=== PATIENT | female | born 1945 | race Caucasian/White ===

== ENCOUNTER 2017-03-25 10:30 | Inpatient (IN) | payer OTHER ==
--- NOTE | 2017-03-25 10:41 | CPEKG ---
Heart Rate: 240 RR Interval: 250 P-R Interval: 94 QRSD Interval: 112 QT Interval: 240 QTC Interval: 480 P [place]: 0 QRS [place]: -34 T Wave [place]: 155 EKG Severity - ABNORMAL ECG - EKG Impression: SUPRAVENTRICULAR TACHYCARDIA EKG Impression: VENTRICULAR PREMATURE COMPLEX EKG Impression: INCOMPLETE LEFT BUNDLE BRANCH BLOCK EKG Impression: LVH WITH SECONDARY REPOLARIZATION ABNORMALITY EKG Impression: ANT-SEPT INJURY, PROBABLE EARLY ACUTE INFARCT Electronically Signed By: Mei Mederos 25-Mar-2017 15:07:31
[2017-03-25] MEDS ORDERED: NS 500 ML IV ONE (10:44)
[2017-03-25] MEDS ORDERED: AMIODARONE HCL 150 MG/3 ML VIAL IVP ONE (10:44)
[2017-03-25] MEDS ORDERED: AMIODARONE HCL 200 ML IV ONE (10:51)
[2017-03-25 10:55] LABS: PLATELET COUNT 264 10^3/uL (150-400)
[2017-03-25 11:07] LABS: INR 1.04 (0.83-1.16); PROTIME(PATIENT) 13.8 SEC (12.0-15.0)
[2017-03-25 11:18] LABS: CREATINE KINASE 100 IU/L (0-156)
--- NOTE | 2017-03-25 11:18 | EDPHY ---
H & P Time Seen by Provider: 03/25/17 10:38 HPI/ROS: HPI Possible seizure, tachycardia. 71-year-old female by ambulance. Her accompanies her. Her reports that approximately 15 min prior to arrival the patient had what was described as tonic clonic like seizure activity which lasted 10-15 seconds. He reports however that she was lucent unconscious during this episode. EMS noted she was markedly tachycardic on their initial evaluation. There rhythm strip shows a wide complex ventricular tachycardia. Her blood sugar per EMS was 167. The patient currently denies any chest pain, shortness of breath or palpitations. She denies any loss of sensation or weakness in her extremities. No headache. No changes in vision. She has no other complaints. Past medical history is significant for stage IV lung cancer. She reports that she last had a CT scan of her head about 6 weeks ago which did not show any metastasis. She is currently on an outpatient chemotherapeutic regimen. Denies cardiac history. ROS: Constitutional: No fever, no chills. As above. Eyes: No discharge. No changes in vision. ENT: No sore throat. No nasal congestion or rhinorrhea. Respiratory: No cough. No shortness of breath. Cardiac: No chest pain, no palpitations. Gastrointestinal: No abdominal pain, no vomiting, no diarrhea. Genitourinary: No hematuria. No dysuria or increased frequency with urination. Musculoskeletal: No back pain. No neck pain. No myalgias or arthralgias. Skin: No rashes. Neurological: No headache. No focal weakness or altered sensation. Past medical history: Stage IV lung cancer. As above. Social history: Nonsmoker. Here with her . No alcohol. Physical Exam: General Appearance: Alert, no distress. This patient is responding to questions appropriately and in full sentences. This patient appears well- hydrated and well-nourished. Eyes: Pupils equal and round no pallor or injection. No lid edema, erythema or injection. ENT, Mouth: Mucous membranes are moist. The pharyngeal tissues are unremarkable. No edema or swelling. No asymmetry suggestive of abscess. No erythema or exudates. No tongue lacerations or abrasions. Respiratory: There are no retractions, lungs are clear to auscultation with good air movement bilaterally. Cardiovascular: Tachycardia. No murmur appreciated. Gastrointestinal: Abdomen is soft and nontender, no masses, bowel sounds normal. No focal tenderness at McBurney's point. No Miller sign. Neurological: Motor sensory function is grossly intact. Cranial nerves are normal. Cerebellar function intact. Skin: Warm and dry, no rashes. Musculoskeletal: Neck is supple and nontender. No pain on flexion of her neck. Extremities are symmetrical. All joints range without pain or impingement. Psychiatric: No agitation. No depression. Database: EKG: EKG 1. Time 10:30 a.m.; shows a wide complex tachycardia with ventricular rate at 2:40 a.m.. Consider SVT with aberrant C verses accelerated ventricular tachycardia. Interpreted by me. EKG 2. time 10:49 a.m.; EKG shows a narrow complex normal sinus tachycardia with a ventricular rate of 121. The OR, QRS, QT intervals are within normal limits. There are no ST-T wave changes indicative of ischemic or injury pattern. No evidence of right heart strain. Interpreted by me. Imaging: CT brain without contrast: Age-related changes only. Results were discussed with staff radiologist Dr. Cy Walker. CT pulmonary angiogram of the chest: Negative for pulmonary embolism. Left upper lobe mass, vertebral Mets, please see radiologist's report for further details. Procedures: Emergency department course: IV placed per EMS. Initial vital signs reviewed. EKG obtained and reviewed by myself. Initial EKG as above, wide complex tachycardia rate of 240. SVT versus accelerated V-tach. Likely SVT. Patient started on IV normal saline with 500 cc to be given over 0.5 hr. She will be given 150 mg of IV amiodarone initially over 5 min. Patient responded well to IV amiodarone could converting to a sinus rhythm, narrow complex with ventricular rate of 110-120. EKG repeated, no ischemic changes. Patient will be started on an amiodarone drip at 1 milligram/minute. 11:20 a.m., patient re-evaluated. Resting comfortably at this time. Patient has received 500 cc of IV normal saline. I will continue her at a rate of 150 cc/hour. Blood pressure currently 104/74. 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 She states that she is feeling much better. Has no complaints at this time. I discussed admission to our hospitalist service with the patient and her . They endorse. Hospitalist paged. 11:25 a.m., discussed case with hospitalist, patient accepted for admission to the hospitalist service, ICU initially, under the care of Dr. Green. She has remained stable through her remaining emergency department course. Dr. Green is concerned about possible pulmonary embolism as an etiology of the patient's tachycardia. CT angiogram of chest ordered. He will follow up on the results of this study. Differential Diagnosis: The differential diagnosis on this patient includes but is not limited to SVT with aberrant see verses ventricular tachycardia, seizure versus pseudo-seizure , history of stage IV lung cancer. This represents a partial list of diagnoses considered. These considerations are based on history, physical exam, past history, reassessment and diagnostic testing. Smoking Status: Never smoked Constitutional: Initial Vital Signs Heart Rate 174 H 03/25/17 10:30 Respiratory Rate 22 H 03/25/17 10:30 Blood Pressure 74/44 L 03/25/17 10:30 O2 Sat (%) 92 03/25/17 10:30 O2 Delivery Mode Room Air O2 (L/minute) 2 Allergies/Adverse Reactions: Penicillins Allergy (Verified 03/25/17 10:58) tramadol Allergy (Verified 03/25/17 10:58) Home Medications: Medication Instructions Recorded Aspirin [Aspirin 81mg (*)] 81 mg PO HS 03/25/17 Erlotinib HCl [Tarceva] 150 mg PO DAILY06 03/25/17 Herbals/Supplements -Info Only 1 ea PO DAILY 03/25/17 Multivitamins [Multivitamin (*)] 1 each PO BID 03/25/17 Pravastatin Sodium [Pravachol] 10 mg PO HS 03/25/17 Medical Decision Making - Diagnostics Imaging Results: Imaging Impressions Chest X-Ray 03/25/17 10:45 Impression: Consistent with left perihilar lung cancer. No obvious acute abnormality identified. Critical Care Time: I spent a total of 42 minutes of critical care time in obtaining history, performing a physical exam, bedside monitoring of interventions, collecting and interpreting tests and discussion with consultants but not including time spent performing procedures. - Data Points Laboratory Results: Laboratory Results 03/25/17 10:30 03/25/17 10:30 03/25/17 03/25/17 03/25/17 10:36 10:30 10:30 WBC RBC Hgb POC Hgb 17.0 gm/dL H gm/dL (12.6-16.3) Hct POC Hct 50 % H % (38-47) MCV MCH MCHC RDW Plt Count MPV Neut % (Auto) Lymph % (Auto) [place] % (Auto) Eos % (Auto) Baso % (Auto) Nucleat RBC Rel Count Absolute Neuts (auto) Absolute Lymphs (auto) Absolute Monos (auto) Absolute Eos (auto) Absolute Basos (auto) Absolute Nucleated RBC Immature Gran % Immature Gran # PT 13.8 SEC SEC (12.0-15.0) INR 1.04 (0.83-1.16) APTT 28.2 SEC SEC (23.0-38.0) POC Sodium 138 mEq/L mEq/L (135-145) Sodium 139 mEq/L mEq/L (135-145) POC Potassium 4.0 mEq/L mEq/L (3.3-5.0) Potassium 4.3 mEq/L mEq/L (3.5-5.2) POC Chloride 102 mEq/L mEq/L (97-110) Chloride 101 mEq/L mEq/L (97-110) Carbon Dioxide 22 mEq/l mEq/l (22-31) Anion Gap 16 mEq/L mEq/L (8-16) POC BUN 18 mg/dL mg/dL (7-23) BUN 17 mg/dL mg/dL (7-23) Creatinine 1.0 mg/dL mg/dL (0.6-1.0) POC Creatinine 1.0 mg/dL mg/dL (0.6-1.0) Estimated GFR 54 Glucose 129 mg/dL H mg/dL (70-100) POC Glucose 140 mg/dL H mg/dL (70-100) Calcium 9.5 mg/dL mg/dL (8.5-10.4) Creatine Kinase 100 IU/L IU/L (0-156) CK-MB (CK-2) Fraction 3.78 ng/mL H ng/mL (0.00-3.19) CK-MB (CK-2) % 3.9 % % (0.0-4.0) Creatine Kinase Interp NEGATIVE (NEGATIVE) Troponin I 0.089 ng/mL H ng/mL (0.000-0.034) 03/25/17 10:30 WBC 8.06 10^3/uL 10^3/uL (3.80-9.50) RBC 5.62 10^6/uL H 10^6/uL (4.18-5.33) Hgb 16.7 g/dL H g/dL (12.6-16.3) POC Hgb Hct 50.2 % H % (38.0-47.0) POC Hct MCV 89.3 fL fL (81.5-99.8) MCH 29.7 pg pg (27.9-34.1) MCHC 33.3 g/dL g/dL (32.4-36.7) RDW 14.1 % % (11.5-15.2) Plt Count 264 10^3/uL 10^3/uL (150-400) MPV 10.4 fL fL (8.7-11.7) Neut % (Auto) 70.5 % % (39.3-74.2) Lymph % (Auto) 13.5 % L % (15.0-45.0) [place] % (Auto) 12.0 % % (4.5-13.0) Eos % (Auto) 2.6 % % (0.6-7.6) Baso % (Auto) 0.7 % % (0.3-1.7) Nucleat RBC Rel Count 0.0 % % (0.0-0.2) Absolute Neuts (auto) 5.67 10^3/uL 10^3/uL (1.70-6.50) Absolute Lymphs (auto) 1.09 10^3/uL 10^3/uL (1.00-3.00) Absolute Monos (auto) 0.97 10^3/uL H 10^3/uL (0.30-0.80) Absolute Eos (auto) 0.21 10^3/uL 10^3/uL (0.03-0.40) Absolute Basos (auto) 0.06 10^3/uL 10^3/uL (0.02-0.10) Absolute Nucleated RBC 0.00 10^3/uL 10^3/uL (0-0.01) Immature Gran % 0.7 % % (0.0-1.1) Immature Gran # 0.06 10^3/uL 10^3/uL (0.00-0.10) PT INR APTT POC Sodium Sodium POC Potassium Potassium POC Chloride Chloride Carbon Dioxide Anion Gap POC BUN BUN Creatinine POC Creatinine Estimated GFR Glucose POC Glucose Calcium Creatine Kinase CK-MB (CK-2) Fraction CK-MB (CK-2) % Creatine Kinase Interp Troponin I Medications Given: Discontinued Medications Amiodarone HCl (Amiodarone Hcl) 150 mg IVP EDNOW ONE Stop: 03/25/17 10:45 Last Admin: 03/25/17 11:05 Dose: 150 mg Sodium Chloride (Ns) 500 mls @ 1,000 mls/hr IV EDNOW ONE PRN Reason: Protocol Stop: 03/25/17 11:13 Last Admin: 03/25/17 10:50 Dose: 500 mls Amiodarone HCl (Amiodarone Hcl) 200 mls @ 0 mls/hr IV EDNOW ONE PRN Reason: As Directed Stop: 03/25/17 10:52 Last Admin: 03/25/17 11:05 Dose: 200 mls Point of Care Test Results: 03/25/17 10:36 POC Sodium 138 POC Potassium 4.0 POC Chloride 102 POC BUN 18 POC Creatinine 1.0 POC Glucose 140 H Departure - Departure Disposition: [facility] Inpatient Acute Clinical Impression: Wide-complex tachycardia, Seizure verses pseudo seizure Condition: Good
--- NOTE | 2017-03-25 11:43 | ASMTLACE ---
GERHARD Acuity / Level of Answers: Yes Care: Did the patient have an inpatient admission? Comorbidities - select Answers: Any tumor (including all that apply lymphoma or leukemia) # of Emergency department Answers: 1-2 visits in the last 6 months Score: 6 Date Signed: 03/25/2017 11:42 AM Electronically Signed By:Adriana Peres RN
[2017-03-25] MEDS ORDERED: ACETAMINOPHEN 325 MG TAB PO PRN (12:33)
[2017-03-25] MEDS ORDERED: ONDANSETRON DISINTEGRATING 4 MG TAB PO PRN (12:33)
[2017-03-25] MEDS ORDERED: ONDANSETRON 4 MG/2 ML VIAL IVP PRN (12:33)
[2017-03-25] MEDS ORDERED: IOPAMIDOL (ISOVUE 370) 100 ML BTL IV ONE (12:35)
[2017-03-25] MEDS ORDERED: NS 1,000 ML IV SCH (12:45)
--- NOTE | 2017-03-25 13:23 | GHP ---
[f rep st] HISTORY AND PHYSICAL DATE OF ADMISSION: 03/25/2017 HISTORY OF PRESENT ILLNESS: The patient is a pleasant 71-year-old female with history of metastatic lung cancer diagnosed in December 2017. She received cancer care in [place] where she lives. S he is on Tarceva. She is up in [place] with her . 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 She did ski yesterday. Last johana anderson she began having episodes of feeling weak and lightheaded. She had some dyspnea. She had inter mittent periods of somnolence. Today driving back she felt particularly short of breath while she wa s driving over [place] to the point where she had purchased an oxygen canister and was using th at with improvement. She felt better as they descended [place] down to 8000 feet in [place]. She said her symptoms reminded her of when she needed a thoracentesis. Her chest x-ray is clear toda y. She had some vague palpitations and some chest heaviness but no passing out. There were episodes whe re she was sort of intermittently losing consciousness while driving here. Ultimately her be came concerned and called 911 and they picked them up on the side of the road. She was noted to be tachycardic in a wide-complex tachycardia and presented to the emergency departme . I discussed the case with Dr. Mei Mederos. REVIEW OF SYSTEMS: Complete 10-point review of systems conducted negative except as noted in the HPI . PAST MEDICAL HISTORY: 1. Metastatic lung cancer. 2. Reflux. 3. Hyperlipidemia. SOCIAL HISTORY: No tobacco. Rare alcohol. Lives in [place]. . FAMILY HISTORY: Notable for heart disease. ALLERGIES: Penicillin and tramadol. HOME MEDICATIONS: Aspirin, Tarceva, multivitamin and pravastatin. PHYSICAL EXAM: VITAL SIGNS: Presenting vitals, pulse 174, now 109, blood pressure 74/44, now 108/76 , breathing 20 times a minute, 92% on room air. GENERAL: No acute distress. Tachypneic. HEENT: S clerae anicteric. Oropharynx clear. Mucous membranes are moist. NECK: Supple without lymphadenopa thy or JVD. LUNGS: Clear to auscultation bilaterally. HEART: S1, S2. Tachycardic. There are no murmurs. No split S2. ABDOMEN: Soft, nontender, nondistended. LOWER EXTREMITIES: Without edema. Calves nontender. SKIN: Without rash. NEUROLOGIC: Nonfocal. LABORATORY DATA: INR is 1. White count 8, hematocrit 50, platelets are 264,000. Sodium is 139, pot assium 4.3, chloride 101, bicarb 22, BUN 17, creatinine 1.0, glucose 129, troponin is elevated at 0.0 89. EKG interpreted by tn, the initial EKG shows wide-complex tachycardia of 240. There is concorda nce over the precordium. Subsequent EKG shows sinus tach without ST elevation. The chest x-ray interpreted by tn, shows perih ilar lung cancer with no pleural effusion. Noncontrast head CT shows no acute intracranial abnormali ties. I have discussed the case with Dr. Mei Mederos. ASSESSMENT/PLAN: 71-year-old female presents with supraventricular tachycardia, shortness of breath concerning for massive pulmonary embolus. 1. Query massive pulmonary embolus. The patient is currently stable. I will perform a stat CT of h er chest to evaluate for pulmonary embolism and will start heparin drip thereafter if positive. If i t is negative will check ultrasounds of her lower extremities. 2. Supraventricular tachycardia. She has a wide-complex tachycardia with positive troponin. I thin k this is more likely to be a supraventricular tachycardia with aberrancy. I have ordered an echocar diogram. We will trend her troponins. 3. Lung cancer. She is hypercoagulable secondary to this. I have reached out to her oncologist, Dr Emma Romero at [place]. That phone is [phone]. We will continue her Tarceva. 4. Dyspnea. She has a clear chest x-ray with pulmonary embolus workup as above. 5. Code. Full. DISPOSITION: [facility]. /[id number]/MODL
--- NOTE | 2017-03-25 14:06 | CPEKG ---
Heart Rate: 121 RR Interval: 496 P-R Interval: 140 QRSD Interval: 76 QT Interval: 316 QTC Interval: 449 P [place]: 46 QRS [place]: 36 T Wave [place]: 60 EKG Severity - BORDERLINE ECG - EKG Impression: SINUS TACHYCARDIA EKG Impression: BORDERLINE INFERIOR Q WAVES Electronically Signed By: Mei Mederos 25-Mar-2017 15:07:31
[2017-03-25] MEDS: METOPROLOL TARTRATE 25 MG TAB PO SCH ×2 (16:41→21:27)
--- NOTE | 2017-03-25 17:09 | ECHO ---
[email or web address] [address] [address] Main: [phone] Fax: Transthoracic Echocardiogram Name: HOA KESSLER MR#: [id number] Study Date: 03/25/2017 Study Time: 01:22 PM Date of : 1945 Age: 71 year(s) Height: 157.5 cm (62 in.) Weight: 55.34 kg (122 lb.) BSA: 1.55 m2 Gender: Female Examination: Echo Indication: Supraventricular Tachycardia, Known Metastatic Lung CA Image Quality: Contrast: Requested by: Tanner Green BP: 97 mmHg/69 mmHg Heart Rate: Rhythm: Sinus tachycardia Indication: Supraventricular Tachycardia, Known Metastatic Lung CA Procedure Staff Insole Tape Stitcher [place]: Prabhjot Pfeiffer HOPE Reading Physician: Will Mahan Requesting Provider: Conclusions: Normal size left ventricle. No LV hypertrophy. Normal global systolic LV function. EF is 68 %. No regional wall motion abnormality. Diastolic dysfunction is present. . Normal RV function. The left atrium is normal in size. The right atrium is normal in size. Trivial mitral valve regurgitation. The aortic valve is tri-leaflet and functions normally. Trivial to mild tricuspid valve regurgitation. The aorta is normal. Small pericardial effusion. No echocardiographic evidence of hemodynamic compromise. Measurements: Chambers Valvular Assessment AV/MV Valvular Assessment TV/PV Normal Normal Normal Name Value Range Name Value Range Name Value Range Ao Laura (MM): 2.8 cm (2.2 cm-3.7 AV Vmax: 1.38 m/s (1 m/s-1.7 TR Vmax: 2.76 mm/s ( - ) cm) m/s) TR PGmax: 30 mmHg ( - ) IVSd (2D): 0.8 cm (0.6 cm-1.1 AV maxP mmHg ( - ) syst. PAP: 35 mmHg ( - ) cm) LVOT Vmax: 1.19 m/s (0.7 m/s-1.1 PV Vmax: 0.80 m/s (0.6 m/s-0.9 LVDd (2D): 3.2 cm (3.9 cm-5.3 m/s) m/s) cm) MV E Vmax: 0.54 m/s ( - ) PV PGmax: 3 mmHg ( - ) LVDs (2D): 2.0 cm (2.1 cm-4 MV A Vmax: 0.58 m/s ( - ) cm) MV E/A: 0.93 ( - ) LVPWd (2D): 1.0 cm ( - ) Patient: HOA KESSLER Study Date: 03/25/2017 Page 1 of 2 01:22 PM LVEF (2D): 68 (>=54 %) Continued Measurements: Chambers Valvular Assessment AV/MV Valvular Assessment TV/PV Name Value Name Value Name Value LADs Lon.5 cm MV E/E' Septal: 13.30 CVP (est.): 5 mmHg LA Area: 13.9 cm2 MV E/E' Lateral: 11.10 Findings: Left Ventricle: Normal size left ventricle. No LV hypertrophy. Normal global systolic LV function. EF is 68 %. No regional wall motion abnormality. Diastolic dysfunction is present. . Right Ventricle: Normal size right ventricle. Normal RV function. Left Atrium: The left atrium is normal in size. Right Atrium: The right atrium is normal in size. Mitral Valve: The mitral valve is normal in appearance and function. Trivial mitral valve regurgitation. Aortic Valve: The aortic valve is tri-leaflet and functions normally. Tricuspid Valve: The tricuspid valve appears normal. Trivial to mild tricuspid valve regurgitation. The pulmonary artery pressure is normal. Pulmonic Valve: Pulmonary valve not well visualized. Aorta: The aorta is normal. Pericardium: Small pericardial effusion. No echocardiographic evidence of hemodynamic compromise. (No Signature Object) Patient: HOA KESSLER Study Date: 03/25/2017 Page 2 of 2 01:22 PM [id number]
[2017-03-25] MEDS: MULTIVITAMINS 1 EACH TAB PO SCH (21:26)
[2017-03-25] MEDS: PRAVASTATIN SODIUM 10 MG TAB PO SCH (21:27)
[2017-03-26 04:41] LABS: PLATELET COUNT 164 10^3/uL (150-400)
[2017-03-26 04:50] LABS: INR 1.14 (0.83-1.16); PROTIME(PATIENT) 14.8 SEC (12.0-15.0)
[2017-03-26] MEDS: ERLOTINIB HCL 150 MG PO SCH (05:41)
[2017-03-26] MEDS: METOPROLOL TARTRATE 25 MG TAB PO SCH ×2 (08:29→21:38)
[2017-03-26] MEDS: MULTIVITAMINS 1 EACH TAB PO SCH ×2 (08:30→21:39)
[2017-03-26] MEDS ORDERED: Herbals/Supplements -Info Only PO SCH (09:00)
--- NOTE | 2017-03-26 09:42 | HOSPPROG ---
Hospitalist Progress Note Assessment/Plan: 71 yo F w metastatic lung CA here w likely SVT w aberrancy Arrhythmia: likely SVT w aberrancy. echo normal EP to see + trop: suspect 2/2 strain from tachyarrhythmia sinus ekg w no ST T changes lung CA; tarceva ?PE: workup negative dispo: suspect home today after EP eval > 30 minutes on dc Subjective: case d/w dr wyatt. tele: no events - fully reviewed by me Objective: Vital Signs Temp Pulse Resp BP Pulse Ox 36.3 C 74 16 152/87 H 96 03/26/17 07:24 03/26/17 07:24 03/26/17 07:24 03/26/17 07:24 03/26/17 07:24 Laboratory Results 03/26/17 04:24 03/26/17 04:24 03/25/17 03/26/17 03/27/17 05:59 05:59 05:59 Intake Total 1600 Balance 1600 PT 14.8 SEC (12.0-15.0) 03/26/17 04:24 INR 1.14 (0.83-1.16) 03/26/17 04:24 - Physical Exam Constitutional: no apparent distress, appears nourished Eyes: PERRL, anicteric sclera Ears, Nose, Mouth, Throat: moist mucous membranes, hearing normal Cardiovascular: regular rate and rhythym, no murmur, rub, or gallop, No systolic murmur Respiratory: no respiratory distress, no rales or rhonchi Gastrointestinal: normoactive bowel sounds, soft, non-tender abdomen Genitourinary: no bladder fullness, No sullivan in urethra Skin: warm, normal color Musculoskeletal: full muscle strength, no muscle tenderness Neurologic: AAOx3 ICD10 Worksheet Patient Problems: Problems Problem Status Onset Wide-complex tachycardia Acute
--- NOTE | 2017-03-26 11:05 | PDMN ---
Medical Necessity Medical necessity: Pt meets IP criteria per MD; est los >2 mn for eval/tx of SVT w/positive troponin, dyspnea & intermittent periods of weakness, light- headedness & loss of consciousness concerning for massive PE; admit for further workup/monitoring & possible IV heparin drip; hx metastatic lung cancer on chemo ; per H&P & order 03/25/17
[2017-03-26] MEDS ORDERED: AMIODARONE HCL 200 ML IV ONE (12:19)
--- NOTE | 2017-03-26 14:12 | ASMTCASEMG ---
Living Arrangements What is your living Answers: With Spouse arrangement? Who do you live with? Type Of Residence What kind of residence do Answers: House you live in? Discharge Plan Comments Coordination Status Comments Notes: Pt is a 71 y/o female admitted for wide complex tachycardia. Pt will most likely d/c independent when medically stable. Pt is active. No therapies ordered at this time. CM available for changes. Plan: Independent Date Signed: 03/26/2017 02:11 PM Electronically Signed By:NIKOLAI Tapia
[2017-03-26] MEDS: ENOXAPARIN 40 MG/0.4 ML SYR SC SCH (18:35)
[2017-03-26] MEDS ORDERED: AMIODARONE HCL 540 MG in D5W 300 ML IV ONE (19:22)
[2017-03-26] MEDS ORDERED: MELATONIN 3 MG TAB PO SCH ×2 (21:00→22:30)
[2017-03-26] MEDS: PRAVASTATIN SODIUM 10 MG TAB PO SCH (21:39)
--- NOTE | 2017-03-26 22:06 | GCON ---
[f rep st] CONSULTATION HISTORY OF PRESENT ILLNESS: This is a 71-year-old female with past medical history of GERD, dyslipidemia, who was diagnosed with metastatic lung cancer in December 2016, and after initial radiation she was put on Tarceva. 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 She managed to do well without feeling hypoxic. However, in the evening, she started feeling lightheaded and dizzy and on occasion was passing out for brief periods of time. She had some degree of dyspnea without any chest pain or pressure. At that point in time, they decided to drive back thinking that it was related to altitude. However, while driving back, she started feeling more and more lightheaded and was more somnolent. She was also feeling some palpitations. She was given oxygen and she felt marginally better and at that point in time the EMS was called since she was intermittently losing consciousness, and she was brought to the emergency room where she was found to be in ventricular tachycardia. The patient's tachycardia terminated spontaneously. REVIEW OF SYSTEMS: Other than the above is negative. PAST MEDICAL HISTORY: Metastatic lung cancer, reflux disease, hyperlipidemia. SOCIAL HISTORY: Rare alcohol use. No tobacco use. Lives in [place]. Lives with her . FAMILY HISTORY: Notable for heart disease. ALLERGIES: Penicillin and tramadol. MEDICATIONS: At home: Aspirin, Tarceva, multivitamin, and pravastatin. PHYSICAL EXAMINATION: VITAL SIGNS: Blood pressure of 130/60, pulse of 70, respiratory rate 16. GENERAL: No acute distress. HEENT: Pupils equal, react to light and accommodating. Mucous membranes moist. NECK: Supple without any lymphadenopathy or JVD. LUNGS: Clear to auscultation bilaterally. CHEST: Good air entry, bilaterally equal. No rales, rhonchi, rub. CARDIOVASCULAR: S1 , S2 regular. No S3. No murmurs. ABDOMEN: Soft, nontender. No guarding or rigidity. Bowel sounds present. EXTREMITIES: No edema. Calves nontender. SKIN: Warm and dry. No rash. NEUROLOGIC: Nonfocal. LABORATORY DATA: Creatinine 1.0. White count of 8. Troponin mildly elevated at 0.089. EKG shows ventricular tachycardia with AV dissociation. Echocardiogram shows normal EF. IMPRESSION/PLAN: This is a 71-year-old female with metastatic lung cancer, who is on Tarceva, and has spread of metastases to the bones. 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 Considering that she was symptomatic and was syncopal with it, we do need to treat it aggressively. She is not a candidate for ICD considering she is currently on palliative care for advanced metastatic lung cancer. Ablation is not an option because this would be fairly morbid and epimyocardial has a very low success rate. In view of this, medical management could be opted and, hence, we would use amiodarone as the antiarrhythmic of choice. I have explained to the patient and the family the risks and benefits of amiodarone, they understand that most of the risks of amiodarone are long- term risk factors, which may not be pertinent in this case. In view of this, we will start her on amiodarone IV and then tomorrow switch over to p.o. medication. Hopefully, this will keep her VT at bay. I will also further discuss the case with her oncologist, Dr. Cobos, to see if other options such as steroids is a possibility. Thank you for letting me participate in the patient's care. /[id number]/MODL MTDD
[2017-03-27] MEDS: ERLOTINIB HCL 150 MG PO SCH (06:16)
[2017-03-27] MEDS: MULTIVITAMINS 1 EACH TAB PO SCH (07:50)
[2017-03-27] MEDS: ENOXAPARIN 40 MG/0.4 ML SYR SC SCH (07:50)
[2017-03-27] MEDS: METOPROLOL TARTRATE 25 MG TAB PO SCH (07:50)
[2017-03-27 07:52] VITALS: RESP 14; O2SAT 96
--- NOTE | 2017-03-27 11:24 | HOSPPROG ---
Hospitalist Progress Note Assessment/Plan: 71 yo F w metastatic lung CA here w likely SVT w aberrancy Arrhythmia: may be VT per cardiology echo normal EP to see + trop: suspect 2/2 strain from tachyarrhythmia sinus ekg w no ST T changes lung CA; tarceva ?PE: workup negative dispo: suspect home today after EP eval > 30 minutes on dc Subjective: no VT on monitor (interp by me). case d/w cardiology [facility] Objective: Vital Signs Temp Pulse Resp BP Pulse Ox 36.6 C 85 14 161/107 H 96 03/27/17 04:00 03/27/17 07:52 03/27/17 07:52 03/27/17 07:52 03/27/17 07:52 Laboratory Results 03/26/17 04:24 03/26/17 04:24 03/26/17 03/27/17 03/28/17 05:59 05:59 05:59 Intake Total 1600 1319.8 Balance 1600 1319.8 PT 14.8 SEC (12.0-15.0) 03/26/17 04:24 INR 1.14 (0.83-1.16) 03/26/17 04:24 - Physical Exam Constitutional: no apparent distress, appears nourished Eyes: PERRL, anicteric sclera Ears, Nose, Mouth, Throat: moist mucous membranes, hearing normal Cardiovascular: regular rate and rhythym, no murmur, rub, or gallop, No systolic murmur Respiratory: no respiratory distress, no rales or rhonchi Gastrointestinal: normoactive bowel sounds, soft, non-tender abdomen Genitourinary: no bladder fullness, No sullivan in urethra Skin: warm, normal color Musculoskeletal: full muscle strength Neurologic: AAOx3 Psychiatric: interacting appropriately ICD10 Worksheet Patient Problems: Problems Problem Status Onset Wide-complex tachycardia Acute
[2017-03-27 11:37] VITALS: BP 131/80; PULSE 70; TEMP 98.2
--- NOTE | 2017-03-27 15:23 | GDS ---
[f rep st] DISCHARGE SUMMARY DISCHARGE DIAGNOSES: 1. Metastatic lung cancer. 2. Ventricular tachycardia. HOSPITAL COURSE: Please see admission history and physical by Dr. Tanner Green. The patient prese nted with presyncope and shortness of breath. She was found to have wide-complex tachycardia that in itially felt to be supraventricular tachycardia with aberrancy but upon review with Cardiology, it wa s felt to be ventricular tachycardia. She was loaded on amiodarone. She had a normal echocardiogram . She had weakly positive troponin that was felt secondary not to acute coronary syndrome but rather the demand of rapid VT. She had a CTA negative for pulmonary embolism, normal right-sided pressures on her echocardiogram, and she had lower extremity ultrasounds negative for DVT. She had a previous PET scan showing an epicardial focus of increased activity from her cancer and this was felt to be t he source of VT. She was loaded on amiodarone. She had no events on telemetry. She was discharged on p.o. amiodarone with outpatient followup. /[id number]/MODL
== END 2017-03-27 14:43 | disposition home or self-care (01) | DRG 309 ==
LOC: F2W 15:20
PROVIDERS: ADMIT Internal Medicine; ATTEND Internal Medicine
DX: I47.2 Ventricular tachycardia (principal); C78.00 Secondary malignant neoplasm of unspecified lung; C79.51 Secondary malignant neoplasm of bone; K21.9 Gastro-esophageal reflux disease without esophagitis; E78.5 Hyperlipidemia, unspecified
CPT/HCPCS: 82947-QW; 96365; J0282; J1650; Q9967